=== PATIENT | female | born 1985 | race Caucasian/White ===

== ENCOUNTER 2020-04-17 21:46 | Emergency (ER) | payer OTHER, SELFPAY ==
[2020-04-17 21:48] VITALS: BP 143/74; PULSE 92; RESP 17; TEMP 36.4; O2SAT 100
--- NOTE | 2020-04-17 23:07 | ED.DENTAL ---
HPI - Dental/Oral General Chief complaint: Dental/Oral Stated complaint: facial swelling after dental visit Time Seen by Provider: 04/17/20 21:52 History of Present Illness HPI Narrative: Patient is a 34-year-old female with history of poor dentition and cirrhosis of liver who presents to the ER with left lower facial swelling. Patient was diagnosed with dental infection 3 weeks ago and prescribed clindamycin. She took it sparingly and then restarted it last week and took it 1-2 times a day after her pain increased. She saw the dentist today who increased her dosage to 300 mg 4 times daily. Patient reports swelling worsened since the dental appointment and he had told her if she has worsening of her swelling she should come to the ER for an injection of antibiotics. Patient has no difficulty breathing or swallowing. There is no intraoral drainage. There is no incision and drainage at the dentist office. Related Data Home Medications Medication Instructions Recorded Confirmed gabapentin 800 mg tablet 800 mg PO BID tablet 09/03/19 02/01/20 lactulose 10 gram/15 mL (15 mL) 10 g PO TID PRN ml 11/30/19 02/01/20 oral solution trazodone 150 mg tablet 150 mg PO DAILY tablet 01/29/20 02/01/20 Allergies Allergy/AdvReac Type Severity Reaction Status Date / Time Penicillins Allergy Mild Unknown Verified 04/17/20 21:47 Review of Systems Constitutional: Constitutional: Denies chills, Denies fever(s) and Denies weakness ENT: Denies dysphagia and Denies sore throat Comments: Dental pain with facial swelling Respiratory: Respiratory: Denies cough, Denies dyspnea and Denies wheezing Gastrointestinal: Gastrointestinal: Denies nausea and Denies vomiting [facility] Past Medical History Medical History Bipolar disorder Chronic insomnia History of biliary stent insertion Liver cirrhosis, alcoholic MDD (major depressive disorder), recurrent episode, moderate Neuropathy Tobacco abuse Social History Social History (Updated 01/29/20 @ 13:41 by Modesta Pollock) Social History: . Lives with , 2 kids, 3 cats, 1 dog Smoking packs per day: 0.5 Smoking cigarettes per day: 10.0 Smoking status: Former smoker Tobacco type: cigarettes Second hand tobacco smoke exposure: Yes Alcohol intake: never Substance use: never Substance use type: does not use Additional occupation/education comments: Disabled Gender identity (if verbalized by the patient): Female Exam Narrative: Exam Narrative: GENERAL: Well-appearing, well-nourished, and in no acute distress. HEAD: Normocephalic, atraumatic. ENT: Mucous membranes moist. Poor dentition. Large amount of swelling left lower mandible. No discernible intraoral abscess. NECK: Supple. Normal range of motion. NEURO: Alert and oriented x3. PSYCH: Normal mood and affect. Course Course Emergency Course: Patient received IM ceftriaxone. Discharged with metronidazole to take in addition to clindamycin. Vital Signs Vital signs: Vital Signs Temperature 97.5 F L 04/17/20 21:48 Pulse Rate 92 04/17/20 21:48 Respiratory Rate 17 04/17/20 21:48 Blood Pressure 143/74 H 04/17/20 21:48 Pulse Oximetry 100 04/17/20 21:48 Temperature 97.5 F L 04/17/20 21:48 Pulse Rate 92 04/17/20 21:48 Respiratory Rate 17 04/17/20 21:48 Blood Pressure 143/74 H 04/17/20 21:48 Pulse Oximetry 100 04/17/20 21:48 Discharge Plan Discharge Clinical Impression: Dental abscess Patient Disposition: Home, Self-Care Condition: Stable Instructions: Dental Abscess (ED) Additional Instructions: Return to the ER if you cannot breathe, you cannot swallow, you have worsening pain, you have additional concerns. Take the metronidazole in addition to your clindamycin. Follow up with your dentist. Prescriptions: New metronidazole 500 mg tablet 500 mg PO Q8H Qty: 21 RF: 0 No Action trazodo
[2020-04-17] MEDS: WATER, STERILE FOR INJECTION 10 ML VIAL XX (23:16)
[2020-04-17] MEDS: cefTRIAXone 1 GM VIAL IM (23:16)
[2020-04-17] MEDS: metroNIDAZOLE 250 MG TABLET 500 MG PO (23:40)
== END 2020-04-17 23:42 | disposition home or self-care (01) ==
PROVIDERS: Emergency Provider Emergency Medicine; PCP Family Medicine
DX: K04.7 Periapical abscess without sinus (principal); K70.30 Alcoholic cirrhosis of liver without ascites; G62.9 Polyneuropathy, unspecified; F31.9 Bipolar disorder, unspecified
CPT/HCPCS: 96372; 99283; A9270; J0696

== ENCOUNTER 2023-02-11 01:14 | Day surgery (SDC) | payer OTHER, SELFPAY ==
[2023-01-28 15:19] VITALS: BMI 22.3
--- NOTE | 2023-01-28 15:24 | PC.NURSE ---
Report to the Outpatient Waiting Room, entrance under the green pavilion located off [facility], at time 11:45 on date 02/11/23. Planned Procedure Time: 1:45. Time changes happen often and if your time is changed the preop area will call you the afternoon before. - You and your visitor will be asked to self-screen and do not enter if you have any COVID symptoms. - A mask is optional within the hospital at this time. Patients may have clear liquids (water, carbonated beverages, clear teas, apple juice) until 8 hours prior to surgery with a maximum of 20 ounces. - No food from midnight until time of surgery Take the following medications with a SIP of water the morning of surgery: LEXAPRO, ALPRAZOLAM IF NEEDED DO NOT STOP ANY OF YOUR OTHER PRESCRIPTION MEDICATIONS PRIOR TO SURGERY ?EXCEPT THE FOLLOWING Medications to discontinue per physician: N/A Date to take last dose: N/A Please no make-up, nail thai, hairspray, perfume, deodorant, or body powder the day of surgery. No jewelry (including any body piercings) or valuables the day of surgery, leave them at home. Please take a shower or bath the night before, or the morning of, surgery with an antibacterial soap. Wear comfortable, loose fitting clothing. - Jewelry must be removed prior to entering the operating room. Rings and piercings that are not removed may be cut off. - The hospital will not accept responsibility for valuables. - Please leave all valuables, including medications, at home the day of surgery. If you are going home after surgery, a licensed bulk truck driver must drive you home. - NO public transportation without another adult if you receive anesthesia. - We recommend that an adult stay with you for 24 hours following discharge. - We also recommend that you do not drive, make important decision, drink alcoholic beverages, or take any drugs that were not prescribed by your health care provider for at least 24 hours after your discharge time. Follow any additional instructions given to you from your surgeon. If you or anyone in your household have experienced Covid symptoms in the past week, please notify your surgeon or the nurse liaison at the phone number below for possible testing. Telephone instructions given to PT - ERIK GARZA and asked if any additional questions and then verbalized understanding. Patient advised to call surgeon office or pre surgery nurse liaison [phone] if any additional questions.
[2023-02-11] VITALS (7 sets, daily range): BP systolic 125–170; BP diastolic 73–90; PULSE 50–74; RESP 13–18; TEMP 36.2–36.9; O2SAT 99–100
--- NOTE | 2023-02-11 07:07 | WPDHPUPDATE1 ---
History and Physical Update Update Date/Time: 02/11/23 07:07 Patient seen and examined in pre-operative holding area. No interval change in medical history or symptoms. Patient recalls previous discussion of benefits and alternatives to procedure. Continues to desire to proceed with right ectr poss open and right cubital tunnel release . Reviewed procedure, post-op expectations and risks including but not limited to bleeding, infection, injury to tendon/nerve/vessel, decreased hand function, stiffness, RSD, no change or worsening of symptoms. I discussed the possible use of assistants and their participation in the case. Patient stated understanding and signed the consent form wishing to proceed.
--- NOTE | 2023-02-11 07:08 | P.OP_ITS ---
Procedure Note - Detailed Date of Procedure 02/11/23 Pre-op Diagnosis right carpal and cubital tunnel syndrome Post-op Diagnosis Same Procedure Performed right ectr and CuTR Surgeon Kb Stapleton MD Flat Breakdown Processor Nadira Galeas PA-C Anesthesia General Description of Procedure INFORMED CONSENT: The patient was seen and examined and marked in the pre-op area.? The patient signed the consent form. PROCEDURE IN DETAIL:The patient taken back to OR on the stretcher in supine position. Time out performed with anesthesia, surgeon and staff agreeing on patient's name site and surgery to be performed SCDs were placed on the lower extremities and inflated. A tourniquet was placed on {right} upper extremity and antibiotics given IV After anesthesia administered sedation I injected {10}cc 1%lido with epi and 0.5% marcaine plain at the operative sites The?{right upper extremity}?was prepped and draped in sterile fashion the??{right upper extremity} was? exsanguinated with Esmarch bandage and tourniquet inflated to 250mmHg I made a transverse incision in the {right} volar distal wrist crease through skin and dermis with 15 blade scalpel.? Littler scissors spread down to antebrachial fascia. A small incision was made in antebrachial fascia allowing access to Carpal tunnel. I proceeded with sequential dilation staying in line with the ring finger and hugging the hook of the hamate.? I then used the synovial elevator to free any adhesions from the underside of the transverse carpal ligament. Next I was able to insert the Microaire endoscopic carpal tunnel device with direct visualization of the transverse fibers on the monitor and proceeded with complete segmental retrograde release of the ligament in its entirety.? I irrigated with normal saline and closed with 4-0 monocryl for dermis and subcuticular closure. I next proceeded with making a longitudinal incision between two heads for flexor carpi ulnaris at end of {right} cubital tunnel with 15 blade scalpel.? Littler scissors were used to spread down to FCU fascia.? An incision was made in FCU fascia and ulnar nerve identified exiting cubital tunnel.? I proceeded with complete retrograde release of the cubital tunnel including 7cm proximal for the intermuscular septum.? The nerve appeared healthy with visible vaso nervorum.? There was no subluxation on full elbow range of motion. ? I irrigated with normal saline and closure with 4-0 monocryl for dermis and subcuticular. A dressing of Dermabond, 4x4, venancio, and a volar wrist and posterior elbow splint was applied for patient safety, security, and comfort and secured with an cordelia bandage after the tourniquet was let down noting the hand was warm and well perfused. The patient was then awaken from anesthesia and transferred to the recovery room in stable condition.? Complications - none EBL- 0cc Disposition - home in stable conditions Nadira Galeas PA-C was essential for positioning, retraction, closure and dressing placement [facility] Billing Surgery - Charge Forward: Surgery Billing ([id number] and [id number] and [id number], for nadira)
[2023-02-11] MEDS: LACTATED RINGERS 1,000 ML 30 ML IV CONT (12:05)
--- NOTE | 2023-02-11 12:16 | WPDANESEPPF ---
Anes - Initial Pre Proc Eval Procedure: Operation Date: 02/11/23 13:45 Proposed Procedures p Right Endoscopic Carpal Tunnel Release, Possible Open, Right Cubital Tunnel Release - Kb Stapleton MD Date/Time: 02/11/23 12:16 Surgeon: Kb Stapleton MD Pre Op Diagnosis: right carpal tunnel syndrome Patient Data Age: 37 Gender: F Height: 1.65 m Weight: 58.5 kg Allergies Allergy/AdvReac Type Severity Reaction Status Date / Time Penicillins Allergy Mild Unknown Verified 02/11/23 11:09 Home Medications Medication Instructions Recorded Confirmed Type quetiapine 50 mg tablet 50 mg PO QHS #30 tabs 08/25/22 02/11/23 Rx escitalopram oxalate 20 mg tablet 20 mg PO DAILY #30 tabs 08/31/22 02/11/23 Rx alprazolam 0.5 mg tablet 0.5 mg PO BID PRN anxiety #20 tabs 12/06/22 02/11/23 Rx trazodone 150 mg tablet 150 mg PO DAILY #30 tabs 12/28/22 02/11/23 Rx lisdexamfetamine 30 mg capsule 30 mg PO DAILY #30 caps 01/26/23 02/11/23 Rx (Vyvanse) Patient hx anesthesia problems: none Family hx anesthesia problems: none Results Review: All pre-operative results and documents have been reviewed as part of the pre-operative evaluation. [facility] Past Medical History Medical History Chronic diastolic (congestive) heart failure Chronic insomnia Generalized anxiety disorder with panic attacks History of biliary stent insertion Liver cirrhosis, alcoholic MDD (major depressive disorder), recurrent episode, moderate Neuropathy Thiamine deficiency Tobacco abuse Vitamin D deficiency Surgical History Surgical History History of appendectomy (2005) S/P TIPS (transjugular intrahepatic portosystemic shunt) Tubal ligation status 2010 Family History Family History Mother Acute myocardial infarction Depression Diabetes mellitus Heart disease Other Carcinoma of colon Other Cerebrovascular accident Grandparent Cerebrovascular accident Diabetes mellitus Heart disease Lung cancer smoker Social History Social History Social History: . Lives with , 2 kids, 3 cats, 1 dog Smoking packs per day: 1 Smoking cigarettes per day: 20.0 Years smoked: 20 Smoking pack-years: 20.00 Smoking status: Current every day smoker Tobacco type: cigarettes and e-cigarettes/vaping Second hand tobacco smoke exposure: Yes Alcohol intake: former Alcohol use details: JUNE 2017 Substance use: current Substance use type: marijuana Lack of Transportation: No Lack of Food: Never True Current Housing: I Have Housing Concerned About Future Housing: No Difficulty Paying Gas/Electric Bills: No Difficulty Paying for Meds: No Currently Unemployed: No Education: High School Diploma/GED Difficulty w/ Childcare or Family Care: No Living arrangements: with family Occupation/Education: other Additional occupation/education comments: Disabled Gender identity (if verbalized by the patient): Female Sexual Orientation (if Verbalized by the Patient): Straight or Heterosexual Spiritual care concerns: No Agree to blood products: Yes Anes - Eval Final PreProcedure Day of Procedure 02/11/23 12:16 Patient weight: normal Heart: regular rate and rhythm Lungs: clear to auscultation Airway: Mallampati scale class II Neurological: alert and oriented Last oral intake: >/= 8 hours ASA classification: III Emergent: no Anesthetic plan: proceed Anesthesia type and monitoring: general GIVS and standard monitoring Results Review: All pre-operative results and documents have been reviewed as part of the pre-operative evaluation. Informed Consent: The patient's anesthetic plan and its attendant risks and benefits were discussed with the patient/family/POA. Questions we
[2023-02-11] MEDS: ceFAZolin 2 GM/D5W 50 ML 2 GM/50 ML BAG IVPB (12:20)
[2023-02-11] MEDS: BUPivacaine HCL 0.5% PF 30 ML VIAL 5 ML INFILTRATE (12:37)
[2023-02-11] MEDS: LIDO 1%/EPINEPHRINE 1:100,000 20 ML VIAL 5 ML INFILTRATE (12:38)
--- NOTE | 2023-02-11 13:30 | SUR.PHASEI ---
1323: Simple mask removed.
== END 2023-02-11 14:10 | disposition home or self-care (01) ==
PROVIDERS: PCP Family Medicine Adolescent Medicine; Visit Provider Plastic Surgery
PROC: 01N54ZZ Release Median Nerve, Percutaneous Endoscopic Approach (ICD-10-PCS; CPT 29848; principal; 2023-02-11 13:45)
DX: G56.03 Carpal tunnel syndrome, bilateral upper limbs (principal); G56.20 Lesion of ulnar nerve, unspecified upper limb; E55.9 Vitamin D deficiency, unspecified; F17.210 Nicotine dependence, cigarettes, uncomplicated
CPT/HCPCS: 29848; 64718; J0461; J0690; J1100; J1596; J2250; J2405; J3010; J7120

== ENCOUNTER → 2024-02-27 15:22 | Outpatient (CLI) | payer BC, SELFPAY ==
--- NOTE | ~2024-02-27 | XR_ITS ---
EXAMINATION: XR shoulder LT min 2V, XR scapula LT DATE: 02/27/2024 15:53 INDICATION: Posterior left shoulder pain TECHNIQUE: 1. AP and transscapular Y views of the left shoulder were obtained. 2. AP view of the scapula was obtained. COMPARISON: None FINDINGS: Normal alignment. No fracture. Glenohumeral joint is normal. Acromioclavicular joint is normal. Soft tissues are unremarkable. Visualized portions of the left lung are clear. IMPRESSION: Negative left shoulder and scapula radiographs. Reviewed, dictated and finalized at location [facility] IMPRESSION: Negative left shoulder and scapula radiographs.
== END ==
LOC: EXPCRAD 15:24
PROVIDERS: PCP Family Medicine Adolescent Medicine; Visit Provider Family Medicine Adolescent Medicine
DX: M25.512 Pain in left shoulder (principal)
CPT/HCPCS: 73010; 73030